=== PATIENT | female | born 1950 | race Caucasian/White ===

== ENCOUNTER → 2023-07-14 | Outpatient (CLI) | payer SELFPAY, OTHER ==
--- NOTE | 2023-07-14 07:47 | CT_ITS ---
CT RIGHT LOWER EXTREMITY WITH 3-D IMAGING CLINICAL INDICATION: OSTEOARTHRITIS RIGHT KNEE, [place] TECHNIQUE: Axial CT images of the right lower extremity (right hip, right knee, and right ankle) was performed without IV contrast material. Coronal and sagittal reformats were provided. RADIATION DOSAGE (If Supplied By Facility): CTDIvol = ( 20.25 ) mGy, DLP = ( 2248.38 ) mGycm COMPARISON: No relevant prior comparison study available FINDINGS: Bones: There is mild degenerative arthrosis of the right hip joint with joint space narrowing and mild marginal osteophyte formation. 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 There is tricompartment degenerative arthrosis with joint space narrowing and marginal osteophyte formation, most severe in the medial femorotibial compartment. There is a 6 mm calcification or loose body adjacent to the medial femoral epicondyle. There are old osseous avulsion fractures adjacent to the medial malleolus of the distal tibia. Intact remainder of the osseous structures without an acute fracture. No lytic or blastic osseous masses. Soft Tissues: There is a small knee joint effusion. The deep soft tissue structures are unremarkable. There is subcutaneous soft tissue edema along the anterior aspect of the knee. CT/Extremity Lower without Contra IMPRESSION: Tricompartment degenerative arthrosis of the right knee, most severe in the medial femorotibial compartment. Small right knee joint effusion. Electronically Signed: Jaiem Desai MD at 15:58 EST ,
== END | disposition home or self-care (01) ==
PROVIDERS: PCP Family Medicine; Referring Provider Student in an Organized Health Care Education/Training Program; Visit Provider Student in an Organized Health Care Education/Training Program
DX: Z01.818 Encounter for other preprocedural examination (principal); M17.31 Unilateral post-traumatic osteoarthritis, right knee; Z01.810 Encounter for preprocedural cardiovascular examination; M25.561 Pain in right knee
CPT/HCPCS: 73700

== ENCOUNTER 2023-08-06 12:40 | Observation (INO) | payer SELFPAY, OTHER ==
--- NOTE | 2023-07-14 07:49 | EKG12_ITS ---
Test Reason : PRE-OP Blood Pressure : / mmHG Vent. Rate : 080 BPM Atrial Rate : 080 BPM P-R Int : 138 ms QRS Dur : 088 ms QT Int : 368 ms P-R-T Axes : 047 -01 027 degrees QTc Int : 424 ms Normal sinus rhythm Normal ECG Confirmed by JAIME REBOLLEDO, TAQUERIA ([id number]), food editor MARYBETH COTTON ([id number]) on 07/15/2023 5:59:12 AM Referred By: Papo Valdez Confirmed By:TAQUERIA SANDOVAL MD
--- NOTE | 2023-07-14 07:49 | RAD_ITS ---
STUDY: X-RAY CHEST REASON FOR EXAM: Female, 72 years old. Preoperative evaluation. TECHNIQUE: Frontal and lateral views of the chest. COMPARISON: None. FINDINGS: Mild hyperinflation. There is no demonstrated pleural abnormality. Mild cardiomegaly with aortic tortuosity. Normal mediastinum and blaine. Normal visualized pulmonary arteries. Mild diffuse thoracic spondylosis with mild dextroscoliosis. Normal visualized ribs, clavicles, and shoulders. No abnormality of the visualized soft tissue structures of the upper abdomen. RAD/Chest PA and Lateral IMPRESSION: Cardiomegaly with hyperexpansion and no acute or active cardiopulmonary disease. Electronically Signed: Adrien Curran MD at 9:17 EST ,
[2023-07-14 08:51] LABS: Absolute Lymphocyte Count 1.84 X10^3/uL (0.83-4.51); Absolute Neutrophil Count 5.5 X10^3/uL (2.0-7.7); Basophil# 0.02 X10^3/uL; Basophil% 0.2 % (0-1); Eosinophil# 0.18 X10^3/uL; Eosinophils% 2.2 % (0-5); Hematocrit 46.7 % (37-47); Hemoglobin 15.2 g/dL (12.0-15.0); Lymphocyte # 1.84 X10^3/ul (0.83-4.51); Lymphocyte % 22.6 % (19-41); Mean Corp Hgb Conc 32.5 g/dL (32-36); Mean Corpuscular Hgb 29.3 pg (27.0-32.0); Mean Corpuscular Volume 90.2 fL (81-99); Mean Platelet Vol. 10.5 fl (6.2-12.0); Monocyte# 0.61 X10^3/uL; Monocyte% 7.5 % (0-10); NRBC Flagged by Analyzer 0 % (0-5); Neutrophil # 5.47 X10^3/uL (2.7-7.7); Neutrophil % 67.1 % (47-70); Platelet Count 241 K/mm3 (150-450); RBC Distribution Width CV 13.7 % (11.6-14.6); RBC Distribution Width SD 45.5 fl (35.1-43.9); Red Blood Count 5.18 M/mm3 (4.2-5.4); White Blood Count 8.2 K/mm3 (4.4-11.0)
[2023-07-14 09:12] LABS: Albumin, Serum 3.5 g/dL (3.2-5.0); Anion Gap 3 (5-15); BUN 25 mg/dL (7-18); BUN/Creat Ratio 28.1 RATIO (10-20); Calcium,Total 10.1 mg/dL (8.5-10.1); Chloride 110 mmol/L (98-107); Creatinine, Serum 0.89 mg/dL (0.55-1.02); EST Glomerular Filtration Rate 66 mL/min (>60); Est Glom Filt Rate - Afr Amer 80 mL/min (>60); Glucose 94 mg/dL (74-106); Magnesium 2.5 mg/dL (1.6-2.6); Potassium 4.3 mmol/L (3.5-5.1); Sodium Level 140 mmol/L (136-145)
[2023-07-14 09:20] LABS: Hemoglobin A1c 5.1 % (3.8-5.6)
[2023-08-06] VITALS (12 sets, daily range): BP systolic 130–165; BP diastolic 67–89; PULSE 77–95; RESP 16–18; TEMP 35.9–36.9; O2SAT 93–100; BMI 39.4
[2023-08-06] MEDS: Lactated Ringers 1,000 ML 15 ML IV (09:11)
[2023-08-06] MEDS: Acetaminophen 500 MG Tablet 1000 MG PO (09:12)
[2023-08-06] MEDS: Magnesium 1 GM over 15 mins IV (09:12)
[2023-08-06] MEDS: Gabapentin 600 MG Tablet PO (09:12)
[2023-08-06 09:16] LABS: Bedside Glucose 96 mg/dL (74-106)
--- NOTE | 2023-08-06 10:45 | KNEE_PTH ---
PATHOLOGY RESULTS PATIENT: ISELA ERNST LOC: MS3 U#:[id number] AGE/SX: 72/F ROOM: [facility] [place]08/06/[address]: Dr. Papo Valdez DO : 1950 BED: 1 DIS: 08/07/2023 SPEC #: [id number] RECD: 08/06/23 12:48 STATUS: AUDREY MURRIETACristy #: [id number] DALE: 08/06/23 10:[address]: Papo Valdez DEPT: SURGICAL PATHOLOGY RECD BY: Sho Pugh ENTERED: 08/06/23 13:10 SP TYPE: TOTAL KNEE OTHR DR: Dr. Kevin Bradshaw DO Tissues: Knee, NOS Procedures: Decalcification bone/plaque Surgery Specimen Level IV HEADER OPERATION: ERAS, total knee replacement robotic arm assist PRE-OP DIAGNOSIS: Posttraumatic osteoarthritis right knee TISSUE SUBMITTED: Right knee bone MICROSCOPIC DIAGNOSIS Bone and tissue of right knee, total knee resection: Severe degenerative joint disease. AM:sandra 08/10/2023 MICROSCOPIC DESCRIPTION Slides are reviewed. GROSS DESCRIPTION Received is one container designated bone and soft tissue right knee. The specimen consists of multiple fragments of coronado-yellow bone measuring in aggregate 10.0 x 9.0 x 2.5 cm. A few fragments of soft tissue is noted attached to the pieces of bone measuring in aggregate 2.0 x 1.5 x 0.3 cm. A number of bony fragments contain articular surfaces consistent with tibial plateau and femoral condyle and displaying prominent osteophyte formation, eburnation and bone erosion. Irrigation Teacher sections are submitted in two cassettes as follows: 1 - soft tissue, 2 - bone after decalcification. / SJ:sandra 08/06/2023 TC:5 [facility]: [id number]
[2023-08-06] MEDS: Cefazolin 2 GM in 0.9% Normal Saline (100mL Bag) 100 ML IV (10:47)
[2023-08-06] MEDS: TXA 1000mg in NS100 100ml (IVPB at Closure) 660 MG IV (11:05)
[2023-08-06] MEDS: dexAMETHasone 10 MG/ML Vial IV (11:05)
[2023-08-06] MEDS: TXA 1000mg in NS100 100ml (IVPB at Incision) 660 MG IV (12:12)
[2023-08-06] MEDS: JPS (Morphine 10mg/ml) OPERA.SITE (12:12)
[2023-08-06] MEDS: Lactated Ringers 1,000 ML 999 ML IV (13:00)
--- NOTE | 2023-08-06 13:13 | PCM.OPRPT ---
Report of Operation Date of Procedure: 08/06/23 Description of Surgical Findings:: Preoperative diagnosis: Right knee primary osteoarthritis Postoperative diagnosis: Right knee primary osteoarthritis Procedure: Cemented right total knee arthroplasty Surgeon: Papo Valdez DO Dispatch Associate: Inga Ibarra PA-C Anesthesia: General Anesthesiologist: Dr. Escobar Complications: None apparent Drains: None Estimated blood loss: 100 cc Urinary output: None recorded IV fluids: 1000 cc crystalloid Specimens: Total knee resections Surgical implants: Neola triathlon X3 asymmetric patella size a29, triathlon cruciate retaining femoral #3, primary tibial baseplate #4, triathlon X3 tibial bearing insert CS 9 mm thickness Indications: This is a 72-year-old female seen in the outpatient setting diagnosed with right knee osteoarthritis with fixed varus deformity. She failed nonoperative management with intra-articular corticosteroid injections, activity modification, bracing, yyrt-fce-cofojwy analgesics. X-rays revealed grade 4 changes. She also had significant patellofemoral arthritis. I recommended a right total knee arthroplasty. The risks, benefits, alternatives to procedure reviewed with patient at length and he agreed to proceed. Risks included but were not limited to bleeding, infection, loss of life or limb, need for additional surgery, persistent pain, intraoperative or postoperative fracture, instability, loosening of components, wound complications, stiffness, neurovascular injury, DVT or PE. Patient expressed understanding these risks and wished to proceed with surgery. Informed consent was obtained in the outpatient setting. Description of procedure: Patient was identified in the preoperative holding area by name, medical record number, and date of . Informed consent was confirmed with the patient. The operative knee was marked with a surgical marker. At time of her procedure, patient brought to the operative suite and positioned supine a standard operating table. Patient was then positioned in the seated position for a spinal anesthetic. Spinal anesthetic was successfully placed by anesthesia staff. Patient was then repositioned supine. MAC anesthesia was induced. All bony prominences were well-padded. We then placed a well-padded pneumatic tourniquet on the right upper thigh. The right upper extremity was brought across patient's chest throughout the procedure. We then prepped and draped the left lower extremity in a normal, sterile orthopedic fashion. We performed a timeout with all parties in attendance in agreement with the side, site, operation be performed. No concerns were voiced and would like to proceed with surgery. 2 g Ancef was administered prior to the incision by anesthesia staff as well as 1 g IV TXA. First I exsanguinated the right lower extremity with a Esmarch bandage. Tourniquet was inflated to 300 mmHg which remained up for approximately 50 minutes. Esmarch was removed. I planned a standard midline approach to the right knee approximately 15 cm in length. Skin was sharply incised with a 10 blade scalpel developing full-thickness layers down to the retinaculum. Layers were developed identifying the VMO. I then planned a standard medial parapatellar arthrotomy performed in flexion. The anterior horn of the medial meniscus was released. Hoffa's fat pad was then released. I then everted the patella in extension and brought the knee into 90 degrees of flexion. The anterior horn of the lateral meniscus was then released. The ACL was split in its mid substance with a 10 blade. We then brought the knee back into extension. Appropriately sized patellar reamer was selected. I measured the thickness of the patella to be 24 mm. I then reamed the patella to a depth of approximately 15 mm. A protective baseplate was then placed on the patella. I then placed pins in the metaphyseal distal femur medial to lateral for the Sami arrays. In similar fashion, I made a 2 cm incision approximately a handsbreadth distal to the tibial tubercle along the medial aspect of the tibia, drilling 2 bicortical pins for the tibial array. The knee was brought into flexion. The patella was subluxed laterally but not everted. Medial lateral retractors were placed. We then utilized the [employer] software to confirm our planned surgical procedure and oriented with the patient's osseous anatomy. All checks with the Sami system were confirmed. We elected to place the tibial baseplate in approximately 3 degrees of varusto allow for appropriate balancing. Sawblade was then brought in. I first started with the tibial cut, ensuring protection of the MCL and patellar tendon. A tibial wafer was then excised. I then proceeded to make the posterior femoral, anterior, anterior chamfer cuts with the same blade. Ligaments were protected with [employer] retractors. Sawblade was then exchanged to perform the distal femoral and posterior chamfer cuts. The robot was then removed from the surgical field. Remaining loose bone and meniscus was excised carefully. Posterior osteophytes were removed from the distal femur with a curved osteotome and rongeur. Trial components were then placed. Balance was excellent in both extension and 90 degrees flexion. No mid flexion instability was apparent. I then drilled for a size 29 patella. Patella was trialed. Tracking was excellent. We then marked for tibial baseplate. Distal femoral pegs were drilled. Tibial keel was punched. Trials were removed. Periarticular block was administered. The wound was copiously irrigated with normal saline solution. Simplex cement was then mixed on the back table. Components were then cemented in place with excess cement being removed. Cement was allowed to cure with the components in full extension utilizing an 9 mm trial polyethylene component. While the cement was curing, Betadine solution was irrigated into the wound and the wound edges. After cement had cured fully, trial polyethylene was removed. Tourniquet was deflated. Hemostasis was excellent. An additional 1 g TXA was administered IV. I selected a size 9 mm polyethylene which was placed and impacted per cut in worker recommendations. Final components appeared very well balanced with excellent range of motion. There is no significant remaining flexion contracture. The wound was copiously irrigated with normal saline solution. Capsule was closed watertight with #1 strata fix barbed suture. Deeper report bursal layer was reapproximated with 0 Vicryl suture. Dermis was reapproximated buried interrupted 2-0 Vicryl suture. Skin was finally reapproximated surinder. Patient tolerated the procedure well without apparent complication. She was safely awakened and extubated in the operative suite, transferred to her hospital bed and subsequently to PACU in stable condition. Need for skilled higher level teaching assistant: Inga Ibarra PA-C was critical to the outcome of the case. During the course of the procedure the physician higher level teaching assistant played a vital role. Her intimate knowledge of my steps in the procedure aided in safe and expedient completion of the procedure. The PA played a vital role in positioning particularly in obtaining the appropriate positioning. The PA was also vital in the retraction of soft tissues during the exposure and projecting vital structures. The PA was also vital and protecting soft tissues during times of bony cuts. She also played a vital role in closure with my direct supervision. The PA was also important during reduction and dislocation of the joint and trials intraoperatively. Post Operative Plan: Patient will be placed in observation overnight. Weightbearing: Range of motion and weightbearing as tolerated right lower extremity. Antibiotics: Ancef 2 g every 8 hours x 3 doses DVT Prophylaxis: Aspirin 81 mg twice daily for DVT prophylaxis beginning postoperative day #1 Brown: None Dressing: Maintain silver dressing x7 days X-Rays: 2-week x-rays in the office. Follow-up: 2 weeks in my office for staple removal
[2023-08-06] MEDS: Lactated Ringers 1,000 ML 125 ML IV ×2 (14:43→21:49)
[2023-08-06] MEDS: Ondansetron 4 MG/2 ML Vial IV (17:03)
[2023-08-06] MEDS: Cefazolin 1 GM/50 ML BAG IV (19:02)
[2023-08-07] MEDS: Cefazolin 1 GM/50 ML BAG IV (03:55)
[2023-08-07 04:28] VITALS: BP 139/92; PULSE 79; RESP 18; TEMP 36.6; O2SAT 95
[2023-08-07 05:19] LABS: Hematocrit 40.8 % (37-47); Hemoglobin 12.8 g/dL (12.0-15.0); Mean Corp Hgb Conc 31.4 g/dL (32-36); Mean Corpuscular Hgb 28.6 pg (27.0-32.0); Mean Corpuscular Volume 91.3 fL (81-99); Mean Platelet Vol. 11.2 fl (6.2-12.0); Platelet Count 249 K/mm3 (150-450); RBC Distribution Width CV 13.8 % (11.6-14.6); RBC Distribution Width SD 46.5 fl (35.1-43.9); Red Blood Count 4.47 M/mm3 (4.2-5.4); White Blood Count 20.9 K/mm3 (4.4-11.0)
[2023-08-07 05:50] LABS: Anion Gap 6 (5-15); BUN 16 mg/dL (7-18); BUN/Creat Ratio 24.5 RATIO (10-20); Calcium,Total 8.8 mg/dL (8.5-10.1); Chloride 109 mmol/L (98-107); Creatinine, Serum 0.65 mg/dL (0.55-1.02); EST Glomerular Filtration Rate 94 mL/min (>60); Est Glom Filt Rate - Afr Amer 114 mL/min (>60); Estimated Creatinine Clearance 62.29 ml/min; Glucose 127 mg/dL (74-106); Potassium 4.6 mmol/L (3.5-5.1); Sodium Level 141 mmol/L (136-145)
[2023-08-07] MEDS: Acetaminophen 500 MG Tablet 1000 MG PO (06:08)
[2023-08-07 08:33] VITALS: BP 153/71; PULSE 60; RESP 16; TEMP 36.6; O2SAT 97
[2023-08-07] MEDS: Lisinopril 20 MG Tablet PO (08:40)
[2023-08-07] MEDS: Aspirin 81 MG TAB.CHEW PO (08:43)
--- NOTE | 2023-08-07 11:00 | CASEMGMT ---
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 Pt is not with combine driver. TC to [facility], spoke with Sonia, she states that Felicitas Moore set up C for pt. She is aware pt will dc today. She states she already has the order and does not need anything from this RN CM. She states that she will call pt room to speak with her and they plan to see pt tomorrow. Updated pt on this. Original Note: RN MARICHUY Assessment: Face to Face with pt for initial transition planning/care coordination assessment. RN CM introduced self and role at [facility], pt voices understanding and consents to assessment. Pt is A&O x4 and answers all questions appropriately at this time. Pt sitting up in chair in no distress. Care providers, pharmacy, and demographics verified/updated. Admitting Dx:TKR PCP:Leeann Specialists:asmita Valdez Pharmacy:[facility] Insurance:[facility] Package Plan Prescription Benefit: no LNOK:Lauren Hendricks, Living Arrangements: Pt lives with in a two story home with FFSU with 12-13 steps to enter with bilat handrails. Pt reports she is I in ADL/IADL's and denies concerns at home. Pt son lives right next door with his family who can assist pt. 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 DME:[employer], cane HHC/SNF:Pt denies hx of Pt states no concerns with going home at time of dc. She states that she is already set up with [facility] for PT. She states she was told that [facility] does not have home therapy to come out to her house. She is aware that they do. She does not know the name of the agency that was set up for her. TC to [facility], spoke with Any, she states she does not have referral for pt. RN MARICHUY to continue to find who the agency is. Pt states no further concerns/needs. CM to follow. Advised pt to ask CM if any further question/concerns/needs arise, voices understanding. Pt Goal:Home with HHC Plan:Home with C
[2023-08-07] MEDS: amLODIPine 10 MG Tablet PO (11:02)
[2023-08-07] MEDS: Senna/Docusate Sodium 1 Tablet 2 TABLET PO (11:02)
--- NOTE | 2023-08-07 12:00 | CASEMGMT ---
Pt arrived and states he has a motor driver waiting and is asking if pt can leave. He is aware that an order for dc has not been placed yet. Updated pt nurse. He asks meds to be sent to [facility] pharmacy, updated pharmacy at this time.
--- NOTE | 2023-08-07 12:55 | DCINST_ITS ---
Discharge Instructions Follow Up Care Test Results: Test results from this visit will be discussed in further detail at your follow- up appointment, if applicable. Discharge Plan Admission Admit Date/Time: 08/06/23 12:40 Primary Reason for Your Visit: R total knee replacement Attending Provider: Papo Valdez Primary Care Provider: Kevin Bradshaw Instructions Additional Instructions / Restrictions: Follow preprinted instructions from your surgeons office Discharge Orders/Prescriptions Prescriptions: New meloxicam 7.5 mg Tablet 7.5 mg PO BID 30 Days Qty: 60 0RF oxycodone 5 mg Tablet 5 - 10 mg PO Q4H PRN PRN (Reason: Pain Score 4-10) 7 Days Qty: 42 0RF doxycycline hyclate 100 mg tablet 100 mg PO BID 7 Days Qty: 14 0RF aspirin 81 mg Tablet,Chewable 81 mg PO BIDCM 28 Days Qty: 56 0RF Continued apple cider vinegar 500 mg tablet 500 mg PO DAILY acetaminophen [Acetaminophen Extra Strength] 500 mg tablet 1,000 mg PO Q6H PRN (Reason: pain) ibuprofen 200 mg capsule 400 mg PO Q8H PRN (Reason: pain) lisinopril 20 mg tablet 20 mg PO DAILY amlodipine 10 mg tablet 10 mg PO DAILY Referrals / Follow Up: Papo Valdez DO [Med Staff - Active Staff] - Disposition Disposition (needs filled in before D/C Order can be placed): Home, Self Care
--- NOTE | 2023-08-07 12:56 | PCM.PN.ORT ---
Subjective Subjective Patient seen and examined. Patient reports pain is controlled. Denies new complaints. Denies fevers, chills, nausea vomiting, chest pain or shortness of breath. Anxious to be discharged. Objective Data Objective Data Vital Signs: Vital Signs Temp Pulse Resp BP Pulse Ox O2 Del Method O2 Flow Rate 97.8 F 60 16 153/71 H 97 Room Air 4 08/07/23 08:33 08/07/23 08:33 08/07/23 08:33 08/07/23 08:33 08/07/23 08:33 08/07/23 08:33 08/06/23 13:10 Oxygen Flow Rate (L/min) 4 Oxygen Delivery Method Room Air Weight: 202 lb Body Mass Index (BMI) 39.4 Intake & Output: Intake and Output for Last 24 Hours 08/05/23 08/06/23 08/07/23 23:59 23:59 23:59 Intake Total 3475.75 / 3475.75 1450 / 1450 Output Total 200 / 200 Balance 3275.75 / 3275.75 1450 / 1450 Lab / Micro Data 08/07/23 04:30 08/07/23 04:30 Labs: Laboratory Results - last 24 hr 08/07/23 04:30: WBC 20.9 H, RBC 4.47, Hgb 12.8, Hct 40.8, MCV 91.3, MCH 28.6, MCHC 31.4 L, RDW Std Deviation 46.5 H, RDW Coeff of Janeth 13.8, Plt Count 249, MPV 11.2, Sodium 141, Potassium 4.6, Chloride 109 H, Carbon Dioxide 26.0, Anion Gap 6, BUN 16, Creatinine 0.65, Estim Creat Clear Calc 62.29, Est GFR (MDRD) Af Amer 114, Est GFR (MDRD) Non-Af 94, BUN/Creatinine Ratio 24.5 H, Glucose 127 H, Calcium 8.8 Micro: Microbiology 07/14/23 08:27 Swab (Method) Nasal Screen MRSA/MSSA - Final Physical Exam Narrative General - A&Ox3, NAD. VSS/AF Right lower extremity -incisional dressing C/D/I. SILT Sural, Saphenous, SPN, DPN, Tibial N. distributions. DP, PT 2+. BCR. DF, PF, EHL 5/5. No calf TTP. Assessment & Plan Assessment/Plan (1) Postoperative pain: PLAN: POD# 1 s/p right TKA robotic arm assist - Pain control - PT/OT - DVT PPX -aspirin 81 mg twice daily, SCDs, EYAL mejia, early mobilization Discharge home today with follow-up with outpatient physical therapy tomorrow.
[2023-08-07 13:20] VITALS: BP 140/75; PULSE 78; RESP 18; TEMP 36.6; O2SAT 97
== END 2023-08-07 13:31 | disposition home health service (06) ==
LOC: SDC 16:07 → MS3 16:07
PROVIDERS: Anesthesiology; Admitting Provider Student in an Organized Health Care Education/Training Program; PCP Family Medicine; Referring Provider Student in an Organized Health Care Education/Training Program; Visit Provider Student in an Organized Health Care Education/Training Program
PROC: 0SRC0JZ Replacement of Right Knee Joint with Synthetic Substitute, Open Approach (ICD-10-PCS; CPT 27447; principal; 2023-08-06 10:15)
DX: M17.31 Unilateral post-traumatic osteoarthritis, right knee (principal); E66.01 Morbid (severe) obesity due to excess calories; Z68.41 Body mass index [BMI] 40.0-44.9, adult; I10 Essential (primary) hypertension; Z79.899 Other long term (current) drug therapy
CPT/HCPCS: 27447; S2900; 01402; 64447; 36415; 71046; 80048; 82040; 82962; 83036; 83735; 85025; 85027; 87077; 87081; 88305; 88311; 93005; 94668; 96361; 96365; 96366; 96375; 97162; 97166; 99221; 99252; C1776; J7120; G0378; G0463; J2405; J3475

== ENCOUNTER 2023-10-22 09:59 | Emergency (ER) | payer OTHER, SELFPAY ==
[2023-10-22 10:01] VITALS: BP 147/98; PULSE 95; RESP 14; TEMP 36.6; O2SAT 98; BMI 37.6
--- NOTE | 2023-10-22 10:12 | ED.RN ---
pt denies abd pain/n/v/d currently. sx are intermitent. states i just wanna know what is causing it
--- NOTE | 2023-10-22 10:25 | ED.VIS.GI ---
HPI HPI - GI History of Present Illness Chief Complaint: Abd Pain Informant: patient Abdominal Pain/Flank Pain Onset: Weeks (1) Context: Sudden Onset Timing: Intermittent Quality: Sharp Location: Epigastric, RUQ and LUQ Worsened by: Nothing Relieved by: Nothing Nausea/Vomiting/Emesis GI Symptom: Positive for Nausea and Vomiting Quality: Negative for Blood streaks, Coffee ground or Hematemesis Severity: Mild Diarrhea/Melena/Hematochezia GI Symptom: Negative for Diarrhea, Melena or Hematochezia Associated Symptoms Associated Symptoms: Negative for Dysuria, Frequency or Hematuria Narrative Narrative: Patient presents with epigastric abdominal pain that has been intermittent over the last week. Patient describes her pain as sharp. Patient states the pain is mainly over the epigastric and upper abdomen. Patient states she did have an episode of nausea and vomiting initially when this began. Patient denies any hematemesis or coffee-ground emesis. However, patient states she did not really look that closely at it. Patient denies any diarrhea, melena, or hematochezia. Patient denies any dysuria, frequency, or hematuria. Patient states nothing makes her pain better and nothing makes it worse. [facility] and was referred to the emergency department for further evaluation. [facility] Medical History Arthritis Back pain History of edema History of pain when walking History of rheumatic fever Leg cramps Non-smoker Post-menopausal Wears dentures Wears glasses Home Medications acetaminophen 500 mg tablet (Acetaminophen Extra Strength) 1,000 mg PO Q6H PRN pain 07/09/23 [History Last Taken Unknown] apple cider vinegar 500 mg tablet 500 mg PO DAILY SUPPLEMENT 07/09/23 [History Last Taken Unknown] ibuprofen 200 mg capsule 400 mg PO Q8H PRN pain 07/09/23 [History Last Taken Unknown] amlodipine 10 mg tablet 10 mg PO DAILY 08/06/23 [History Last Taken 08/06/23] lisinopril 20 mg tablet 20 mg PO DAILY 08/06/23 [History Last Taken 08/06/23] aspirin 81 mg chewable tablet 81 mg PO BIDCM 28 days #56 tabs 08/07/23 [Rx Last Taken Unknown] doxycycline hyclate 100 mg tablet 100 mg PO BID 7 days #14 tabs 08/07/23 [Rx Last Taken Unknown] meloxicam 7.5 mg tablet 7.5 mg PO BID 30 days #60 tabs 08/07/23 [Rx Last Taken Unknown] oxycodone 5 mg tablet 5 - 10 mg (1 - 2 x 5 mg) PO Q4H PRN PRN Pain Score 4-10 7 days #42 tabs 08/07/23 [Rx Last Taken Unknown] ondansetron 4 mg disintegrating tablet 4 mg PO Q8H PRN PRN Nausea #10 tabs 10/22/23 [Rx Last Taken Unknown] Allergy/AdvReac Type Severity Reaction Status Date / Time No Known Allergies Allergy Verified 10/22/23 10:00 Surgical History Hx of cholecystectomy Social History Smoking Status: Never smoker ROS ROS ED Constitutional Constitutional ED: Denies chills or fever(s) Eyes Eyes: Denies blurry vision or change in vision ENT ENT ED: Denies rhinorrhea or sore throat Cardiovascular Cardiovascular: Denies chest pain or palpitations Respiratory/Chest Respiratory/Chest: Reports cough; Denies dyspnea Gastrointestinal Gastrointestinal: Reports abdominal pain, nausea and vomiting; Denies diarrhea Genitourinary Genitourinary ED: Denies dysuria or hematuria Musculoskeletal Musculoskeletal: Denies back pain or neck pain Integumentary Denies abscess or rash Neurologic Neurologic: Reports weakness; Denies headache(s) Allergic/Immunologic Allergic/Immunologic ED: Denies mouth swelling or urticaria EXAM Physical Exam Const Vital Signs: 10/22/23 10:01 10/22/23 12:28 Temperature 98 F Temperature Source Temporal Pulse Rate 95 79 Respiratory Rate 14 14 Blood Pressure 147/98 H Blood Pressure Mean 114 Pulse Ox 98 96 Oxygen Delivery Method Room Air Room Air Positive well nourished and well developed General Appearance ED: well developed and NAD HEENT Reports moist mucous membranes Neck supple and no JVD Resp normal respiratory effort and clear to auscultation bilaterally Cardio regular rate and regular rhythm GI non-distended Palpation: soft and tender epigastric; Negative for guarding or rebound tenderness present Extremity full ROM General Extremety ED: Negative for edema or tenderness General Extremity: Negative for edema Neuro CN's II-XII intact bilaterally, moves all extremities and no sensory deficits noted Sensorium / Orientation: alert Motor Exam: strength 5/5 throughout Psych mental status grossly normal MDM MDM MDM Narrative Medical decision making narrative: Differential diagnosis includes peptic ulcer disease, gastritis, pancreatitis, choledocholithiasis, bowel obstruction, perforation, pyelonephritis, and urinary tract infection. CBC will be obtained to assess for leukocytosis and anemia. Comprehensive metabolic profile will be obtained to assess for hepatic function, renal function, and electrolyte abnormality. Lipase will be obtained to assess for pancreatitis. Urinalysis will be obtained to assess for urinary tract infection and hematuria. CT scan of the abdomen pelvis will be obtained to assess for bowel obstruction, perforation, choledocholithiasis, and pancreatitis. History & Record Review Additional record(s) reviewed:: Prior labs Lab Data Attestation: I reviewed the patient's lab results. Lab results narrative: CBC was reviewed. There is a mild leukocytosis of 18.7. This was improved from previous result. The remainder was within normal limits. Comprehensive metabolic profile was reviewed and was essentially within normal limits. Lipase was reviewed and was normal at 62. Urinalysis was reviewed. There is no evidence of urinary tract infection or hematuria. Labs: Laboratory Results - last 24 hr 10/22/23 10/22/23 10:45 12:14 WBC 18.7 H RBC 4.85 Hgb 13.8 Hct 42.8 MCV 88.2 MCH 28.5 MCHC 32.2 RDW Std Deviation 45.0 H RDW Coeff of Janeth 13.9 Plt Count 401 MPV 10.0 Immature Gran % (Auto) 2.400 H Neut % (Auto) 81.6 H Lymph % (Auto) 10.4 L [place] % (Auto) 4.8 Eos % (Auto) 0.4 Baso % (Auto) 0.4 Absolute Neuts (auto) 15.3 H Absolute Lymphs (auto) 1.95 Nucleated RBC % 0 Sodium 138 Potassium 4.1 Chloride 106 Carbon Dioxide 28.0 Anion Gap 4 L BUN 12 Creatinine 0.65 Estim Creat Clear Calc 60.64 Est GFR (MDRD) Af Amer 114 Est GFR (MDRD) Non-Af 94 BUN/Creatinine Ratio 18.4 Glucose 113 H Calcium 9.6 Total Bilirubin 0.60 AST 20 ALT 58 H Alkaline Phosphatase 116 Total Protein 6.8 Albumin 2.3 L Globulin 4.5 H Albumin/Globulin Ratio 0.5 L Lipase 62 Urine Color Yellow Urine Clarity Sl. Cloudy Urine pH 6.0 Ur Specific [place] 1.010 Urine Protein Negative Urine Glucose (UA) Normal Urine Ketones Negative Urine Occult Blood Negative Urine Nitrite Negative Urine Bilirubin Negative Urine Urobilinogen Normal Ur Leukocyte Esterase 25 H Urine RBC 0-5 SEEN Urine WBC 0-5 SEEN Ur Squamous Epith Cells 10-25 SEEN Urine Bacteria 1+ Urine Mucus 0 SEEN Radiography Diagnostic Testing: Clinical Impression(s) from Imaging Studies Abdomen/Pelvis CT 10/22/23 10:31 IMPRESSION: Findings in keeping with acute pancreatitis. The patient is status post cholecystectomy with the central intrahepatic biliary ductal dilatation. Bilateral renal cysts. 4.5 cm x 4.3 cm right ovarian cyst. Further investigation recommended since the patient is post menopausal. Electronically Signed: Twin Chacon MD at 13:02 EDT , CT scan of the abdomen pelvis was obtained. There is enlargement of the pancreas with peripancreatic edema suggesting acute pancreatitis. There is a right ovarian cyst. There are bilateral renal cysts. There is no evidence of bowel obstruction or perforation. This was interpreted by the radiologist and was also independently reviewed by myself. Treatment and Re-Evaluation :: Patient was given IV fluids, morphine, and Zofran. Patient is feeling better on reevaluation. Patient was advised of her findings. Patient was instructed to start with a liquid diet. Patient was given a prescription for Zofran. Patient was instructed to follow-up with her primary care physician in 3 to 5 days. Patient was instructed to return if worse in any way. Patient understood and was agreeable with the plan. All questions were answered. Discharge Plan Triage Chief Complaint: Abd Pain ED Provider: Thomas Odell Dx/Rx/DC Orders Clinical Impression: Epigastric pain, Acute pancreatitis Instructions: ED Pancreatitis Prescriptions: New ondansetron [ondansetron] 4 mg tablet,disintegrating 4 mg PO Q8H PRN PRN (Reason: Nausea) Qty: 10 0RF No Action apple cider vinegar 500 mg tablet 500 mg PO DAILY acetaminophen [Acetaminophen Extra Strength] 500 mg tablet 1,000 mg PO Q6H PRN (Reason: pain) ibuprofen 200 mg capsule 400 mg PO Q8H PRN (Reason: pain) lisinopril 20 mg tablet 20 mg PO DAILY amlodipine 10 mg tablet 10 mg PO DAILY meloxicam 7.5 mg Tablet 7.5 mg PO BID 30 Days Qty: 60 0RF oxycodone 5 mg Tablet 5 - 10 mg PO Q4H PRN PRN (Reason: Pain Score 4-10) 7 Days Qty: 42 0RF doxycycline hyclate 100 mg tablet 100 mg PO BID 7 Days Qty: 14 0RF aspirin 81 mg Tablet,Chewable 81 mg PO BIDCM 28 Days Qty: 56 0RF Primary Care Provider: Kevin Bradshaw Referrals: Kevin Bradshaw, [Primary Care Provider] - 3-5 Days Activity Restrictions/Additional Instructions: Start with a liquid diet. Start with small sips of liquids more frequently. Only take Tylenol as needed for pain. Do not take any anti-inflammatory medicine such as ibuprofen or meloxicam. Follow-up with your primary care physician in 3 to 5 days. Disposition Disposition: Home, Self Care
--- NOTE | 2023-10-22 10:31 | CT_ITS ---
STUDY: CT ABDOMEN AND PELVIS WITH CONTRAST REASON FOR EXAM: Female, 72 years old. Epigastric abdominal pain -- IV PO Contrast. Nausea and vomiting. RADIATION DOSAGE (If Supplied By Facility): CTDIvol = ( 17.00 ) mGy, DLP = ( 1059.69 ) mGycm TECHNIQUE: Transaxial images were obtained from the dome of the diaphragm to the symphysis pubis with oral contrast. Oral and amp; IV Gastrografin and amp; 100mL Isovue-370 was administered. Sagittal and coronal images were reconstructed. Individualized dose optimization techniques were used for this CT. COMPARISON: None. FINDINGS: Mild degree of increased markings at the left lung base suggestive of either atelectasis and/or scarring. The visualized portions of the heart are within normal limits. Minimally dilated central intrahepatic biliary ducts. There are surgical clips in the gallbladder fossa consistent with a prior cholecystectomy. There are multiple benign calcified granulomata of the spleen. There is diffuse enlargement of the pancreas with niesha-pancreatic edema suggesting acute pancreatitis. Normal bilateral adrenal glands. There is a 9.8 cm x 10.3 cm cyst in the upper lateral aspect of the right kidney. There is a 4.1 cm cyst in the anterior upper pole of the right kidney. There is a 9 mm cyst in the upper pole of the left kidney. There is a 3 cm cyst in the medial inferior pole of the left kidney. Normal visualized stomach. Normal small intestine. There are scattered colonic diverticula consistent with diverticulosis. The appendix is visualized and appears normal. There is scattered atherosclerotic calcification of the abdominal aorta, without a demonstrated aneurysm. Normal inferior vena cava. Normal retroperitoneum. Normal urinary bladder. There is a 4.5 cm x 4.3 cm right ovarian cyst. Normal abdominal wall. There are degenerative changes of the visualized lumbar spine. Straightening of the normal lumbar lordosis. Degenerative changes of the symphysis pubis. CT/Abdomen/Pelvis WITH Contrast IMPRESSION: Findings in keeping with acute pancreatitis. The patient is status post cholecystectomy with the central intrahepatic biliary ductal dilatation. Bilateral renal cysts. 4.5 cm x 4.3 cm right ovarian cyst. Further investigation recommended since the patient is post menopausal. Electronically Signed: Twin Chacon MD at 13:02 EDT ,
[2023-10-22] MEDS: 0.9% Normal Saline (1000mL) 1,000 ML 1000 ML IV (10:50)
[2023-10-22 10:52] LABS: Absolute Lymphocyte Count 1.95 X10^3/uL (0.83-4.51); Absolute Neutrophil Count 15.3 X10^3/uL (2.0-7.7); Basophil# 0.07 X10^3/uL; Basophil% 0.4 % (0-1); Eosinophil# 0.07 X10^3/uL; Eosinophils% 0.4 % (0-5); Hematocrit 42.8 % (37-47); Hemoglobin 13.8 g/dL (12.0-15.0); Lymphocyte # 1.95 X10^3/ul (0.83-4.51); Lymphocyte % 10.4 % (19-41); Mean Corp Hgb Conc 32.2 g/dL (32-36); Mean Corpuscular Hgb 28.5 pg (27.0-32.0); Mean Corpuscular Volume 88.2 fL (81-99); Monocyte# 0.89 X10^3/uL; Monocyte% 4.8 % (0-10); NRBC Flagged by Analyzer 0 % (0-5); Neutrophil % 81.6 % (47-70); Platelet Count 401 K/mm3 (150-450); RBC Distribution Width CV 13.9 % (11.6-14.6); Red Blood Count 4.85 M/mm3 (4.2-5.4); White Blood Count 18.7 K/mm3 (4.4-11.0)
[2023-10-22 11:08] LABS: ALB/GLOB Ratio 0.5 RATIO (0.9-2.4); AST(SGOT) 20 U/L (15-37); Alanine Aminotransfer ALT/SGPT 58 U/L (13-56); Albumin, Serum 2.3 g/dL (3.2-5.0); Alkaline Phosphatase 116 U/L (45-117); Anion Gap 4 (5-15); BUN 12 mg/dL (7-18); BUN/Creat Ratio 18.4 RATIO (10-20); Calcium,Total 9.6 mg/dL (8.5-10.1); Chloride 106 mmol/L (98-107); Creatinine, Serum 0.65 mg/dL (0.55-1.02); EST Glomerular Filtration Rate 94 mL/min (>60); Est Glom Filt Rate - Afr Amer 114 mL/min (>60); Estimated Creatinine Clearance 60.64 ml/min; Globulin 4.5 g/dL (2.2-4.2); Glucose 113 mg/dL (74-106); Lipase 62 U/L (13-75); Potassium 4.1 mmol/L (3.5-5.1); Protein, Total 6.8 g/dL (6.4-8.2); Sodium Level 138 mmol/L (136-145)
[2023-10-22 12:18] LABS: Mucous, Urine 0 SEEN /hpf (<or=2+)
[2023-10-22 12:28] VITALS: PULSE 79; RESP 14; O2SAT 96
[2023-10-22 12:30] LABS: Color, Urine Yellow (Yellow); Glucose, Dipstick Normal (Normal); Ketone-Dipstick Negative (Negative); Leukocyte Esterase-Dipstick 25 /ul (Negative); Nitrite-Dipstick Negative (Negative); Occult Blood-Urine Negative /ul (Negative); Protein-Dipstick Negative (Negative); Urine Bilirubin Dipstick Negative (Negative); Urine Clarity Sl. Cloudy (Clear); Urine Urobilinogen Normal (Normal)
[2023-10-22 12:40] LABS: Bacteria 1+ /hpf (None Seen); Red Blood Cells-Urine 0-5 SEEN /hpf (0-5); Squamous Epithelial Cells - UA 10-25 SEEN /hpf (5-10); White Blood Cells 0-5 SEEN /hpf (0-5)
== END 2023-10-22 14:42 | disposition left against medical advice (07) ==
PROVIDERS: Emergency Provider Emergency Medicine; PCP Family Medicine; Visit Provider Emergency Medicine
DX: K85.90 Acute pancreatitis without necrosis or infection, unspecified (principal); R10.13 Epigastric pain; Z90.49 Acquired absence of other specified parts of digestive tract
CPT/HCPCS: 74177; 80053; 81001; 83690; 85025; 96360; 96361; 99283; J7030; Q9967; A4216

== ENCOUNTER → 2023-11-25 | Outpatient (CLI) | payer OTHER, SELFPAY ==
[2023-11-26 04:07] LABS: Cancer Antigen 125 8.5 U/mL (0.0-38.1)
== END | disposition home or self-care (01) ==
LOC: PAVLAB 09:19
PROVIDERS: PCP Family Medicine; Referring Provider Nurse Practitioner Women's Health; Visit Provider Nurse Practitioner Women's Health
DX: N83.201 Unspecified ovarian cyst, right side (principal); Z87.19 Personal history of other diseases of the digestive system
CPT/HCPCS: 36415; 82378; 86304

== ENCOUNTER → 2023-12-24 | Outpatient (CLI) | payer SELFPAY, OTHER ==
--- NOTE | 2023-12-24 14:39 | US_ITS ---
STUDY: ULTRASOUND OF THE FEMALE PELVIS - COMPLETE REASON FOR EXAM: Female, 73 years old. Right ovarian cyst LMP: Patient is postmenopausal. TECHNIQUE: Transvaginal TECHNICAL QUALITY: Adequate. COMPARISON: None. FINDINGS: The uterus is anteverted and is in a midline position. The uterus measures 6.9 cm x 4.2 cm x 3.1 cm. There is a Nabothian cyst of the cervix. The endometrium measures 4.8 mm in thickness, and is hyperechoic. Subcentimeter cystic structures are seen within the endometrium. There is no demonstrated endometrial mass. There are 2, small uterine fibroids. The larger measures 1 cm x 0.9 cm x 0.6 cm. I.U.D. - The patient does not have an I.U.D. The right ovary is visualized. The right ovary is enlarged and measures 5.4 cm x 4.4 cm x 4.4 cm. Within the right ovary, 2 cysts are seen. The largest cyst measures 3.9 cm x 4.4 cm x 4 cm. There is normal arterial and normal venous vascularity. The left ovary is non-visualized. There is no fluid in the cul-de-sac. The bladder is empty at the time of the examination. US/Transvaginal Non- IMPRESSION: Heterogeneous thickening of the endometrium. Right ovarian cysts. The larger cyst measures 3.9 cm x 4.4 cm x 4 cm. Electronically Signed: Twin Chacon MD at 10:03 EDT ,
== END | disposition home or self-care (01) ==
LOC: US 14:34
PROVIDERS: PCP Family Medicine; Referring Provider Nurse Practitioner Women's Health; Visit Provider Nurse Practitioner Women's Health
DX: N83.201 Unspecified ovarian cyst, right side (principal); Z87.19 Personal history of other diseases of the digestive system
CPT/HCPCS: 76830

== ENCOUNTER → 2024-02-25 | Outpatient (CLI) | payer SELFPAY, OTHER ==
--- NOTE | 2024-02-25 12:45 | US_ITS ---
EXAM: US PELVIS TRANSABDOMINAL, COMPLETE CLINICAL INDICATION: Monitor ovarian cysts TECHNIQUE: Transabdominal pelvic ultrasound was performed with grayscale and color Doppler imaging. COMPARISON: No relevant prior studies available. FINDINGS: UTERUS/CERVIX: Endometrial thickness of 4 mm. Anteverted. There is no uterine mass. The uterus measures 6.9 x 4.1 x 3.0 cm. RIGHT OVARY: Normal. Non-enlarged, normal echogenicity. Blood flow is present in the right ovary. LEFT OVARY: 5 cm right and 2 cm left ovarian cysts are noted without significant interval change. Blood flow is present in the left ovary. VAGINA: Patient deferred the endovaginal portion of the exam. FREE FLUID: None. US/Pelvic (Non ) IMPRESSION: Stable bilateral ovarian cysts. Follow-up in one year recommended. Electronically Signed: Howard Hall MD at 16:29 EDT ,
== END | disposition home or self-care (01) ==
PROVIDERS: PCP Family Medicine; Referring Provider Nurse Practitioner Women's Health; Visit Provider Nurse Practitioner Women's Health
DX: N83.201 Unspecified ovarian cyst, right side (principal)
CPT/HCPCS: 76856

== ENCOUNTER 2024-07-04 18:28 | Emergency (ER) | payer OTHER, SELFPAY ==
[2024-07-04 18:29] VITALS: BP 172/83; PULSE 85; RESP 16; TEMP 37; O2SAT 98
--- NOTE | 2024-07-04 18:40 | RAD_ITS ---
EXAM: XR LEFT KNEE COMPLETE, 4 OR MORE VIEWS CLINICAL INDICATION: PAIN TECHNIQUE: Four or more views of the left knee. COMPARISON: No relevant prior studies available. FINDINGS: BONES/JOINTS: At least moderate apparent narrowing of the patellofemoral joint compartment with periarticular osteophytes on the lateral view and lateral greater than medial joint narrowing on the sunrise patellar view. Flabella posterior to the knee. Slight if any suprapatellar joint fluid. Mild medial joint compartment narrowing. Medial and lateral periarticular osteophytes. No acute fracture. No subluxation. Normal alignment. No sclerotic or destructive changes observed. SOFT TISSUES: Unremarkable. No soft tissue swelling or gas. No radiopaque foreign body. RAD/Knee 4 or More Views IMPRESSION: Multi-compartmental moderate degenerative changes. No visible fracture or significant joint effusion. Electronically Signed: Rena Romo MD at 20:11 EST ,
[2024-07-04 21:11] VITALS: BMI 35.7
--- NOTE | 2024-07-04 21:12 | ED.VIS.LOWEX ---
HPI History of Present Illness HPI Narrative: Patient presents with left knee pain that has been getting worse over the past week. Patient states that it is gradually gotten worse. Patient denies any trauma or injury. Patient states she had similar pain in April but this resolved. Patient states her pain is aching and burning. Patient states it is worse with ambulation. Patient states that it is better with rest. Patient denies any paresthesias or weakness. Patient denies any redness or swelling. Chief Complaint: Lower Extremity Injury Informant: patient Onset/Context/Timing Onset: Weeks (1) Context: Gradual Onset Timing: Continuous Quality of Pain: Aching and Burning Location: Left knee Worsened by: Ambulation Relieved by: Rest Associated Symptoms Associated Symptoms: Negative for Parasthesia, Weakness or Loss of Funtion PFSH PFS Medical History History of acute pancreatitis Wears glasses Wears dentures Post-menopausal Arthritis Back pain Non-smoker Leg cramps History of pain when walking History of edema History of rheumatic fever Home Medications ?Medication ?Instructions ?Recorded ?Last Taken ?Type apple cider vinegar 500 mg tablet 500 mg PO DAILY SUPPLEMENT 07/09/23 Unknown History lisinopril 20 mg tablet 20 mg PO DAILY 08/06/23 08/06/23 History hydrocodone-acetaminophen 5-325mg 1 tab PO Q6H PRN PRN Pain 3 days 07/04/24 Unknown Rx 5mg-325mg #10 TABLETS Allergy/AdvReac Type Severity Reaction Status Date / Time No Known Allergies Allergy Verified 07/04/24 18:29 Family History Father Cancer Larynx Uncle Cancer Pancreatic Aunt Cancer Unknown type Surgical History S/P knee replacement Hx of cholecystectomy Social History household members: spouse Smoking Status: Never smoker alcohol intake: never substance use type: does not use seatbelt use: always do you feel safe at home: Yes 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 ROS ROS ED Constitutional Constitutional ED: Denies chills or fever(s) Eyes Eyes: Denies blurry vision or change in vision ENT ENT ED: Denies rhinorrhea or sore throat Cardiovascular Cardiovascular: Denies chest pain or palpitations Respiratory/Chest Respiratory/Chest: Denies cough or dyspnea Gastrointestinal Gastrointestinal: Denies nausea or vomiting Genitourinary Genitourinary ED: Denies dysuria or hematuria Musculoskeletal Musculoskeletal: Denies back pain or neck pain Integumentary Denies abscess or rash Neurologic Neurologic: Denies headache(s) or weakness Allergic/Immunologic Allergic/Immunologic ED: Denies mouth swelling or urticaria EXAM Physical Exam Const Vital Signs: 07/04/24 18:29 Temperature 98.6 F Temperature Source Oral Pulse Rate 85 Respiratory Rate 16 Blood Pressure 172/83 H Blood Pressure Mean 112 Pulse Ox 98 Oxygen Delivery Method Room Air Positive well nourished and well developed General Appearance ED: well developed and NAD HEENT Reports moist mucous membranes Neck full ROM and supple Extremity Extremity Narrative: There is tenderness over the medial aspect of the left knee. It is mainly over the medial joint line. There is no edema or ecchymosis. There is no bony crepitance or step-off. There is no deformity noted. Range of motion was slightly limited in all motions of the left knee secondary to pain. There is no pain with Kalin testing. There is minimal pain with valgus testing. There is no pain with varus testing. Clare's test was negative. Pedal pulses are equal bilaterally. Sensation is intact to light touch bilaterally in the lower extremities. Strength is 5/5 bilaterally in the lower extremities. Neuro oriented x3, CN's II-XII intact bilaterally, moves all extremities and no sensory deficits noted Sensorium / Orientation: alert Motor Exam: strength 5/5 throughout Psych mental status grossly normal MDM MDM MDM Narrative Medical decision making narrative: Differential diagnosis includes fracture, sprain, contusion, and degenerative arthritis. X-rays of the left knee will be obtained to assess for fracture and degenerative arthritis.. Radiography Diagnostic Testing: Clinical Impression(s) from Imaging Studies Knee X-Ray 07/04/24 18:40 IMPRESSION: Multi-compartmental moderate degenerative changes. No visible fracture or significant joint effusion. Electronically Signed: Rena Romo MD at 20:11 EST , X-rays of the left knee were obtained. There are 4 views. On my independent interpretation, there is no acute fracture or dislocation noted. There are some degenerative changes noted. Radiologist also interpreted the x-rays and agrees. Treatment and Re-Evaluation Narrative: Patient was advised of her findings. Patient was advised that this could be degenerative arthritis or meniscus injury. Patient was instructed use ice to the area. Patient was given a dose of [place] here. Patient is given a prescription for a short course of [place]. Patient was instructed to follow-up with Dr. Abrahan Barragan next week as scheduled. Patient and family understood and were agreeable with plan. All questions were answered. Discharge Plan Triage Chief Complaint: Lower Extremity Injury ED Provider: Thomas Odell Dx/Rx/DC Orders Clinical Impression: Left medial knee pain Instructions: ED Meniscal Injury Knee Poss, ED Knee Pain of Uncertain Cause Prescriptions: New hydrocodone-acetaminophen 5-325 mg tablet 1 tab PO Q6H PRN PRN (Reason: Pain) 3 Days Qty: 10 0RF No Action apple cider vinegar 500 mg tablet 500 mg PO DAILY lisinopril 20 mg tablet 20 mg PO DAILY Primary Care Provider: Kevin Bradshaw Referrals: Kevin Bradshaw DO [Primary Care Provider] - 5-7 Days Abrahan Barragan MD [Med Staff - Active Staff] - Keep [facility] appointment Print Language: Yakut Disposition Disposition: Home, Self Care
[2024-07-04] MEDS: HYDROcodone Bitartrate/Apap 5/325 Tablet PO (21:39)
[2024-07-04 21:42] VITALS: BP 169/118; PULSE 70; RESP 18; TEMP 36.7; O2SAT 96
== END 2024-07-04 21:43 | disposition home or self-care (01) ==
PROVIDERS: Emergency Provider Emergency Medicine; PCP Nurse Practitioner Family; Visit Provider Emergency Medicine
DX: M25.562 Pain in left knee (principal); Z96.659 Presence of unspecified artificial knee joint; Z90.49 Acquired absence of other specified parts of digestive tract
CPT/HCPCS: 73564; 99282

== ENCOUNTER → 2024-08-15 | Outpatient (CLI) | payer OTHER, SELFPAY ==
--- NOTE | 2024-08-15 08:22 | EKG12_ITS ---
Test Reason : PREOP Blood Pressure : */* mmHG Vent. Rate : 77 BPM Atrial Rate : 77 BPM P-R Int : 128 ms QRS Dur : 90 ms QT Int : 362 ms P-R-T Axes : 45 5 39 degrees QTcB Int : 409 ms Normal sinus rhythm Normal ECG Confirmed by SATNAM REBOLLEDO, COREY ([id number]), scientific publications editor JOLIE URRUTIA ([id number]) on 08/15/2024 11:03:03 AM Referred By: Abrahan Barragan Confirmed By: COREY HAY MD
--- NOTE | 2024-08-15 08:35 | RAD_ITS ---
EXAM: XR CHEST, 2 VIEWS CLINICAL INDICATION: PRE OP TECHNIQUE: Frontal and lateral views of the chest. COMPARISON: Chest radiograph, 07/14/2023 FINDINGS: LUNGS AND PLEURAL SPACES: No significant abnormality. No consolidation or edema. No pneumothorax. No effusion. HEART: No significant abnormality. Cardiac silhouette not enlarged. MEDIASTINUM: Central airways and mediastinal contour are unremarkable. BONES/JOINTS: Degenerative changes of the spine and apex right curvature. No acute fracture. SOFT TISSUES: No significant abnormality. VASCULATURE: Atherosclerosis. UPPER ABDOMEN: Status post cholecystectomy. RAD/Chest PA and Lateral IMPRESSION: No acute findings in the chest. Electronically Signed: Mark Rosas DO at 19:08 EST ,
[2024-08-15 09:07] LABS: Absolute Lymphocyte Count 1.91 X10^3/uL (0.83-4.51); Absolute Neutrophil Count 6.6 X10^3/uL (2.0-7.7); Basophil# 0.04 X10^3/uL; Basophil% 0.4 % (0-1); Eosinophil# 0.16 X10^3/uL; Eosinophils% 1.7 % (0-5); Hematocrit 45.3 % (37-47); Hemoglobin 14.4 g/dL (12.0-15.0); Lymphocyte # 1.91 X10^3/ul (0.83-4.51); Lymphocyte % 20.6 % (19-41); Mean Corp Hgb Conc 31.8 g/dL (32-36); Mean Corpuscular Hgb 28.7 pg (27.0-32.0); Mean Corpuscular Volume 90.2 fL (81-99); Mean Platelet Vol. 9.1 fl (6.2-12.0); Monocyte# 0.53 X10^3/uL; Monocyte% 5.7 % (0-10); NRBC Flagged by Analyzer 0 % (0-5); Neutrophil # 6.58 X10^3/uL (2.7-7.7); Neutrophil % 70.8 % (47-70); Platelet Count 335 K/mm3 (150-450); RBC Distribution Width CV 13.6 % (11.6-14.6); RBC Distribution Width SD 44.6 fl (35.1-43.9); Red Blood Count 5.02 M/mm3 (4.2-5.4); White Blood Count 9.3 K/mm3 (4.4-11.0)
[2024-08-15 09:33] LABS: Albumin, Serum 3.1 g/dL (3.2-5.0); Anion Gap 4 (5-15); BUN 17 mg/dL (7-18); BUN/Creat Ratio 21.4 RATIO (10-20); Calcium,Total 9.8 mg/dL (8.5-10.1); Chloride 108 mmol/L (98-107); EST Glomerular Filtration Rate 75 mL/min (>60); Est Glom Filt Rate - Afr Amer 90 mL/min (>60); Glucose 130 mg/dL (74-106); Potassium 3.9 mmol/L (3.5-5.1); Sodium Level 140 mmol/L (136-145)
== END | disposition home or self-care (01) ==
PROVIDERS: PCP Nurse Practitioner Family; Referring Provider Orthopaedic Surgery; Visit Provider Orthopaedic Surgery
DX: Z01.818 Encounter for other preprocedural examination (principal); M17.12 Unilateral primary osteoarthritis, left knee; Z01.810 Encounter for preprocedural cardiovascular examination; I10 Essential (primary) hypertension
CPT/HCPCS: 36415; 71046; 80048; 82040; 85025; 93005

== ENCOUNTER → 2024-08-19 | Outpatient (CLI) | payer OTHER, SELFPAY ==
[2024-08-19 12:51] LABS: Hemoglobin A1c 5.4 % (3.8-5.6)
== END | disposition home or self-care (01) ==
LOC: LAB 09:40
PROVIDERS: PCP Nurse Practitioner Family; Referring Provider Orthopaedic Surgery; Visit Provider Orthopaedic Surgery
DX: R73.09 Other abnormal glucose (principal)
CPT/HCPCS: 36415; 83036